=== PATIENT | female | born 1935 ===

== ENCOUNTER 2018-09-12 11:15 | Inpatient (IN) | payer OTHER ==
[~2018-09-12] VITALS: Ht 157.5 cm; Wt 78.0 kg
[2018-09-12] MEDS ORDERED: COZAAR100 MG PO (11:54)
[2018-09-12] MEDS ORDERED: METFORMIN HCL1000 M1 PO (11:55)
[2018-09-12] MEDS ORDERED: NEURONTIN300 MG PO (11:55)
[2018-09-12] MEDS ORDERED: TOPROL XL100 MG PO (11:55)
[2018-09-12] MEDS ORDERED: ZANTAC150 M3 PO (11:56)
[2018-09-22] MEDS ORDERED: INTEGRA PLUS C1 EACH PO (09:46)
[2018-09-22] MEDS ORDERED: XARELTO10 MG PO (09:46)
[2018-09-22] MEDS ORDERED: OXYC1TAB9 PO (09:46)
== END 2018-09-22 16:27 | DRG 470 ==
LOC: SURH 11:45 → O/R 09-19 06:29 → SURH 09-19 06:29
PROVIDERS: ADMIT Orthopaedic Surgery Sports Medicine
PROC: 0SRC0J9 Replacement of Right Knee Joint with Synthetic Substitute, Cemented, Open Approach (ICD-10-PCS; principal; 2018-09-19 14:30)
PROC: 30233N1 Transfusion of Nonautologous Red Blood Cells into Peripheral Vein, Percutaneous Approach (ICD-10-PCS; 2018-09-20)
DX: M17.11 Unilateral primary osteoarthritis, right knee (principal); D64.89 Other specified anemias; E11.9 Type 2 diabetes mellitus without complications; E78.00 Pure hypercholesterolemia, unspecified; I10 Essential (primary) hypertension